=== PATIENT | female | born 1990 | race Caucasian/White ===

== ENCOUNTER 2017-11-14 19:44 | Inpatient (IN) | payer BC ==
[2017-11-14] MEDS ORDERED: Dinoprostone* 10 MG VAG.SUPP VAGINAL ONE (19:58)
--- NOTE | 2017-11-14 20:30 | HP ---
General Information - General Information Maternal Age: 27 Grav: 1 Para: 0 SAB: 0 IEA: 0 Estimated Due Date: 11/09/17 Determined By: LMP Maternal Blood Type and Rh: B Positive - Results this Serology/RPR Result: Non-Reactive Rubella Result: Immune HBsAg Result: Negative HIV Result: Negative GBS Culture Result: Negative Past Medical History Pertinent Past Medical History: Non-Contributory Past Medical History Comment: Environmental allergies Pertinent Past Surgical History: See Records Past Surgical History Comment: [place] tooth extraction Pertinent Family History: Non-Contributory Family History Comment: Lupus Skin Ca Leukemia MS Breast Ca Colon Ca CA - Antepartal Records Antepartal Records: Reviewed, Uncomplicated Review of Systems Constitutional: Comfortable CV Complaint: No Respiratory: Shortness of Breath: No Gastrointestinal: No Nausea/Vomiting, Normal Bowel Movement Genitourinary: No Dysuria, No Bleeding, No Leaking Fluid Musculoskeletal: No Complaint Neurological: No Headache, No Visual Changes Movement: Normal Exam Allergies/Adverse Reactions: Allergies No Known Allergies Allergy (Unverified 06/24/15 14:27) BP 102/73 T 99.1 O2 99 HR 76 RR 20 - Measurements Height: 5 ft 3 in Weight: 140 lb Weight in lbs: [phone] Body Mass Index (BMI): 24.7 Pre- Weight: 120 lb Weight Gained This : 20 lbs and 0 ozs - Exam Breast: Breast Exam Deferred CVA: No CVA Tenderness Extremities: No Edema Heart: Normal Rhythm/Heart Sounds HEENT: No Significant Findings Lungs: Clear Bilaterally Rectal: Rectal Exam Deferred Reflexes: - - DTR 1+ Thyroid: - - WNL @ entry to care - Abdominal Exam Abdomen Exam: Non-Tender, Fundal Height Consistent with Dates - Ultrasound/Biophysical Profile Ultrasound Status: Not Done Targeted Exam Findings Estimated Weight: 7.5-9lb Cervical Exam: 1cm - Exam done in office. Effacement: 70% Station: -1 Presenting Part: Vertex Membrane Status: Intact EFM Findings - External Monitor Findings Baseline Heart Rate: 135 External Monitor Findings: Accelerations Present, No Pattern of Variable or Late Decelerations, Variability Moderate Contractions: None Assessment/Plan - Assessment IUP @ 40+5 weeks gestation. No evidence metabolic acidemia. IBOW - Plan Plan: Induction, Cervical Ripening - Date/Time of Admission Date of Admission: 11/14/17
[2017-11-15] MEDS ORDERED: Acetaminophen TAB* 325 MG ONE (02:45)
[2017-11-15] MEDS ORDERED: Acetaminophen TAB* 325 MG PO PRN ×2 (02:47→21:37)
[2017-11-15] MEDS ORDERED: Promethazine INJ(RESTRICTED)* 25 MG/ML 1 ML VIAL IV PRN (05:25)
[2017-11-15] MEDS ORDERED: Nalbuphine* 10 MG/ML 1 ML VIAL IV PRN (05:25)
[2017-11-15] MEDS ORDERED: Nalbuphine* 10 MG/ML 1 ML VIAL ONE (05:33)
[2017-11-15] MEDS ORDERED: Promethazine INJ(RESTRICTED)* 25 MG/ML 1 ML VIAL ONE (05:33)
--- NOTE | 2017-11-15 05:35 | PN ---
Progress Note - Progress Note Date of Service: 11/15/17 SOAP: Subjective: [Pt very uncomfortable,experiencing contraction pain mostly in her back. Describes them as "sharp". Has not been able to sleep. Would like to consider pain medication] Objective: [Had Tylenol 975mg approx 0300 for pain VSS, afebrile VE 1-2cm/100%/0 UCs Q 2-4 FHT 120, +accels, no decels, mod variability] Assessment: [Early labor, cervical ripening] Plan: [Discussed benefits/risks of nubain & phenergan, patient would like to try, see if she can get any sleep. Opting to keep Cervidil in place as long as she is coping. Remove as scheduled or sooner PRN.]
[2017-11-15 06:08] LABS: ABS Basophils 0 10^3/ul (0-0.2); ABS Eosinophils 0.1 10^3/ul (0-0.6); ABS Lymphocytes 2.2 10^3/ul (1.0-4.8); ABS Neutrophils 8.8 10^3/ul (1.5-7.7); ABS Nucleated RBC 0 10^3/ul; Eosinophil % 0.5 % (0-6); Hematocrit 37 % (35-47); Hemoglobin 12.7 g/dl (12.0-16.0); Lymphocyte % 18.3 % (25-47); Mean Corpuscular HGB Conc 34 g/dl (31-36); Mean Corpuscular Hemoglobin 29 pg (27-31); Mean Corpuscular Volume 84 fL (80-97); Mean Platelet Volume 9.2 um3 (7.4-10.4); Nucleated Red Blood Cells % 0.1; Platelet Count 178 10^3/ul (150-450); Red Blood Count 4.39 10^6/ul (4.00-5.40); Red Cell Distribution Width 15 % (10.5-15); White Blood Count 12.1 10^3/ul (3.5-10.8)
[2017-11-15] MEDS ORDERED: OBEPIDURAL* 250 ML EPIDURAL ONE (09:32)
--- NOTE | 2017-11-15 09:36 | PN ---
Progress Note - Progress Note Date of Service: 11/15/17 Note: S: Pt very uncomfortable with UCs. Requesting epidural O: BP 123/78 HR 71 T 98.2 FHT: 120bpm. Moderate variability. No decels UCs q 2-3 moderate-strong VE: 3-4/100%/vtx 0, intact. Cervidil removed A: IUP at 40-6/7 in early active labor No evidence of metabolic acidemia P: Anesthesia paged for consult
[2017-11-15] MEDS ORDERED: Famotidine TAB* 20 MG PO PRN (10:47)
[2017-11-15] MEDS ORDERED: Phenylephrine IV* 40 MCG/ML 10 ML SYRINGE IV PUSH PRN ×2 (10:47)
[2017-11-15] MEDS ORDERED: Sodium Citrate/Citric Acid* 15 ML UDC PO PRN (10:47)
[2017-11-15] MEDS ORDERED: EPHEDrine (Pressors)* 50 MG/ML VIAL IV PUSH PRN ×2 (10:47)
[2017-11-15] MEDS ORDERED: fentaNYL* 50 MCG/ML 2 ML VIAL (100 MCG VIAL) ONE (10:52)
[2017-11-15] MEDS ORDERED: OBEPIDURAL* 250 ML EPIDURAL SCH (11:00)
[2017-11-15] MEDS ORDERED: Oxytocin in LR* 20 UNITS/1,000 ML BAG IVPB SCH ×2 (12:00→22:00)
--- NOTE | 2017-11-15 12:31 | PN ---
Progress Note - Progress Note Date of Service: 11/15/17 Note: S: Pt comfortable with CEI. Low dose pitocin running O: BP 102/73 HR 87 T 98.2 FHT: 115bpm. Moderate variability. No decels UCs q 2-3 VE: 7cm/100%/vtx 0, BBOW A: IUP at 40-6/7 in labor No evidence of metabolic acidemia P: Enc rest. Continue IV pitocin. Consider amniotomy PRN.
--- NOTE | 2017-11-15 14:00 | PN ---
Progress Note - Progress Note Date of Service: 11/15/17 Note: S: Pt reports more consistent vaginal pressure but overall comfortable O: BP 122/47 HR 56 T 99.2 FHT: 125bpm. Moderate variability. +Accels. No decels. UCs q 2-3 VE: 8-9/100%/vtx 0, BBOW A: IUP at 40-6/7 in labor No evidence of metabolic acidemia P: Reassurance given. Continue IV pitocin. Enc rest.
--- NOTE | 2017-11-15 15:44 | PN ---
Progress Note - Progress Note Date of Service: 11/15/17 Note: S: Pt reports increased vaginal pressure. O: BP 116/54 HR 69 T 99.2 FHT 125bpm. Moderate variability. +Accels. No decels UCs q 2-4 IV pitocin at 4mu/min VE: 8-9/100%/vtx 0, BBOW. Amniotomy clear fluid A: IUP at 40-6/7 in active labor No evidence of metabolic acidemia P: IV pitocin off. Reassurance given. Anticipate trial of pushing soon
--- NOTE | 2017-11-15 18:10 | PN ---
Progress Note - Progress Note Date of Service: 11/15/17 Note: Quick Note: Coaching patient on pushing. Starting to make some progress. Reassurance given.
[2017-11-15] MEDS ORDERED: Dibucaine 1% 28.35 GM TUBE PR PRN (21:37)
[2017-11-15] MEDS ORDERED: Glycerin ADULT SUPP PR PRN (21:37)
[2017-11-15] MEDS ORDERED: Witch Hazel PAD* JAR TOPICAL PRN (21:37)
--- NOTE | 2017-11-15 21:45 | PROCNOTE ---
[facility] OB: Delivery Note - Delivery A Date of : 11/15/17 Time of : 19:37 [place] Sex: Female Weight at : 8 lb 11 oz Score 1 Minute: 9 Score 5 Minutes: 9 Gestational Age in Weeks and Days at Delivery: 40 Weeks and 6 Days Delivery Method: Spontaneous Vaginal Labor: Induced Did Patient attempt ?: N/A, No Previous Amniotic Fluid: Clear Estimated Blood Loss: 300 Anesthesia/Analgesia: IM/IV - in early labor, CEI for Labor Delivered By: Ingrid Reddy - Nursery Level of Nursery: Regular/Bedside - Perineum Perineal Injury: 3rd Degree Extension Perineal Repair: Repair by Dr. Moreno - Events Delivery Events of Note: Pitocin During Labor Delivery Events of Note Comment: pitocin after delivery - Additional Delivery Notes Additional Delivery Notes: Pt admitted for postdates induction. Received Cervidil x 1 that led to onset early active labor. IV pitocin augmentation started after epidural placement with expected progression to complete. Length of labor 15 hours, 24 min. Pushed x 1 hour, 50 min. liveborn female. Slow, controlled delivery of head. OA to IBRAHIMA. Shoulders followed with strong maternal push. vigorous with spontaneous cry. HR>110bpm. Delivered to maternal abdomen. Cord clamped x 2 and cut by FOB when pulsations ceased. Spontaneous delivery intact placenta. Membranes complete. Fundus firm to massage with IV pitocin infusing. Careful inspection of perineum yielded a 3rd degree laceration. Dr. Moreno to bedside for consult and repair. See MD note. EBL 300mL. At time of note mother and in stable condition. Breast feeding initiated
[2017-11-15] MEDS: Docusate CAP* 100 MG PO SCH (22:28)
[2017-11-15] MEDS: Ibuprofen TAB* 600 MG PO PRN (22:28)
[2017-11-15] MEDS ORDERED: Ammonia Inhalant* 1 EA AMP ONE (23:08)
[2017-11-16 06:58] LABS: ABS Basophils 0 10^3/ul (0-0.2); ABS Eosinophils 0 10^3/ul (0-0.6); ABS Monocytes 1.5 10^3/ul (0-0.8); ABS Neutrophils 18.2 10^3/ul (1.5-7.7); ABS Nucleated RBC 0 10^3/ul; Eosinophil % 0 % (0-6); Hematocrit 29 % (35-47); Hemoglobin 10.1 g/dl (12.0-16.0); Mean Corpuscular HGB Conc 35 g/dl (31-36); Mean Corpuscular Hemoglobin 29 pg (27-31); Mean Corpuscular Volume 84 fL (80-97); Mean Platelet Volume 9.2 um3 (7.4-10.4); Nucleated Red Blood Cells % 0; Platelet Count 138 10^3/ul (150-450); Red Blood Count 3.46 10^6/ul (4.00-5.40); Red Cell Distribution Width 14 % (10.5-15); White Blood Count 21.7 10^3/ul (3.5-10.8)
[2017-11-16] MEDS: Ferrous Gluconate TAB* 324 MG TAB PO SCH ×2 (08:07→20:01)
[2017-11-16] MEDS: Docusate CAP* 100 MG PO SCH ×3 (08:07→20:01)
[2017-11-16] MEDS: Ibuprofen TAB* 600 MG PO PRN ×3 (08:08→20:01)
[2017-11-16] MEDS ORDERED: Simethicone TAB* 80 MG TAB.CHEW PO SCH (08:30)
[2017-11-16 21:14] VITALS: BP 121/67
[2017-11-17] MEDS: Ibuprofen TAB* 600 MG PO PRN ×2 (03:19→09:03)
[2017-11-17] MEDS: Docusate CAP* 100 MG PO SCH (09:03)
[2017-11-17] MEDS: Ferrous Gluconate TAB* 324 MG TAB PO SCH (09:03)
== END 2017-11-17 11:25 | disposition home or self-care (01) | DRG 542 ==
LOC: MCHOBOUT 19:44 → MCHOB 20:20
PROVIDERS: ADMIT Midwife; ATTEND Midwife
PROC: 3E033VJ Introduction of Other Hormone into Peripheral Vein, Percutaneous Approach (ICD-10-PCS; principal; 2017-11-14)
PROC: 10907ZC Drainage of Amniotic Fluid, Therapeutic from Products of Conception, Via Natural or Artificial Opening (ICD-10-PCS; 2017-11-14)
PROC: 10E0XZZ Delivery of Products of Conception, External Approach (ICD-10-PCS; 2017-11-14)
PROC: 4A1HX4Z Monitoring of Products of Conception, Cardiac Electrical Activity, External Approach (ICD-10-PCS; 2017-11-14)
PROC: 0DQR0ZZ Repair Anal Sphincter, Open Approach (ICD-10-PCS; 2017-11-14)
PROC: 3E0P7VZ Introduction of Hormone into Female Reproductive, Via Natural or Artificial Opening (ICD-10-PCS; 2017-11-14)
DX: O48.0 Post-term pregnancy (principal); O70.20 Third degree perineal laceration during delivery, unspecified; O99.62 Diseases of the digestive system complicating childbirth; K21.9 Gastro-esophageal reflux disease without esophagitis; Z3A.40 40 weeks gestation of pregnancy; Z37.0 Single live birth; O90.81 Anemia of the puerperium
CPT/HCPCS: 36415; 59200; 85025; 86850; 86900; 86901; A9270-GY; J2300; J2550; J3010

== ENCOUNTER 2021-01-25 10:09 | Inpatient (IN) ==
[2021-01-25] MEDS ORDERED: Lactated Ringers 1000 ml BAG 1,000 ML IV ONE (10:50)
[2021-01-25 12:18] LABS: Rapid COVID-19 Molecular Undetected (Undetected)
[2021-01-25 12:20] LABS: Urine Benzodiazepine Screen None Detected (None Detect); Urine Cannabinoids Screen None Detected (None Detect); Urine Opiates Screen None Detected (None Detect)
[2021-01-25 14:11] LABS: ABS Lymphocytes 1.4 10^3/ul (1.0-4.8); ABS Monocytes 0.4 10^3/ul (0-0.8); ABS Neutrophils 5.5 10^3/ul (1.5-7.7); Eosinophil % 0.5 %; Hematocrit 33 % (35-47); Hemoglobin 11.6 g/dL (12.0-16.0); Lymphocyte % 18.9 %; Mean Corpuscular HGB Conc 35 g/dL (31-36); Mean Corpuscular Hemoglobin 29 pg (27-31); Mean Corpuscular Volume 82 fL (80-97); Mean Platelet Volume 8.9 fL (7.4-10.4); Platelet Count 184 10^3/uL (150-450); Red Blood Count 4.06 10^6 /uL (3.70-4.87); Red Cell Distribution Width 15 % (10-15); White Blood Count 7.3 10^3/uL (3.5-10.8)
[2021-01-25] MEDS ORDERED: OBEPIDURAL 250 ML EPIDURAL ONE (15:43)
[2021-01-25] MEDS ORDERED: Oxytocin in LR 20 UNITS/1,000 ML BAG IVPB ONE (16:21)
[2021-01-25 17:05] LABS: Urine Appearance Clear; Urine Bilirubin Negative (Negative); Urine Blood 2+ (Negative); Urine Color Straw; Urine Glucose Negative (Negative); Urine Ketones Negative (Negative); Urine Nitrite Negative (Negative); Urine Protein Negative (Negative); Urine Specific Gravity 1.006 (1.002-1.030); Urine Urobilinogen Negative (Negative)
[2021-01-25 17:20] LABS: Urine Bacteria 1+ (Absent); Urine Red Blood Cell 3+(>10/hpf) (Absent); Urine Squamous Epithelial Cell Present (Absent); Urine Transitional Epithelial Present (Absent); Urine White Blood Cell Trace(0-5/hpf) (Absent)
[2021-01-25] MEDS ORDERED: Oxytocin in LR 20 UNITS/1,000 ML BAG IVPB SCH (19:00)
[2021-01-25] MEDS ORDERED: Witch Hazel PAD JAR TOPICAL PRN (19:24)
[2021-01-25] MEDS ORDERED: Dibucaine 1% OINT 28.35 GM TUBE PR PRN (19:24)
[2021-01-25] MEDS ORDERED: Lactated Ringers 1000 ml BAG 1,000 ML IV SCH (20:00)
[2021-01-25] MEDS ORDERED: Lidocaine 1% VIAL 10 MG/ML VIAL ONE (22:14)
[2021-01-26 06:58] LABS: ABS Eosinophils 0.1 10^3/ul (0-0.6); ABS Lymphocytes 1.5 10^3/ul (1.0-4.8); ABS Monocytes 0.5 10^3/ul (0-0.8); Eosinophil % 0.8 %; Hematocrit 27 % (35-47); Hemoglobin 9.5 g/dL (12.0-16.0); Lymphocyte % 18.3 %; Mean Corpuscular HGB Conc 35 g/dL (31-36); Mean Corpuscular Hemoglobin 28 pg (27-31); Mean Corpuscular Volume 82 fL (80-97); Mean Platelet Volume 8.6 fL (7.4-10.4); Platelet Count 146 10^3/uL (150-450); Red Blood Count 3.34 10^6 /uL (3.70-4.87); Red Cell Distribution Width 15 % (10-15); White Blood Count 8.1 10^3/uL (3.5-10.8)
[2021-01-26 18:33] VITALS: BP 101/62
== END 2021-01-26 20:00 | disposition home or self-care (01) | DRG 560 ==
LOC: MCHOBOUT 10:09 → MCHOB 10:56
PROVIDERS: ADMIT Midwife; ATTEND Midwife